=== PATIENT | male | born 1970 | race Caucasian/White ===

== ENCOUNTER 2020-06-26 15:24 | Emergency (ER) | payer OTHER | END 2020-06-26 18:33 | disposition home or self-care (01) | LOC: ED 15:24 | DX: S16.1XXA Strain of muscle, fascia and tendon at neck level, initial encounter (principal); I10 Essential (primary) hypertension; W01.0XXA Fall on same level from slipping, tripping and stumbling without subsequent striking against object, initial encounter; Y93.89 Activity, other specified; Y92.89 Other specified places as the place of occurrence of the external cause; Y99.8 Other external cause status ==